=== PATIENT | male | born 1985 | race Caucasian/White ===

== ENCOUNTER 2024-03-12 23:48 | Observation (INO) | payer OTHER ==
[2024-03-13] MEDS: SODIUM CHLORIDE 0.9% 1,000 ML IV ONE (01:35)
[2024-03-13] MEDS: KETOROLAC 15 MG/ML 1 ML VIAL IVP STA (01:37)
--- NOTE | 2024-03-13 01:52 | XR ---
EXAM: XR Left Tibia and Fibula, 2 Views CLINICAL HISTORY: ITS.REASON XR Reason: infection TECHNIQUE: Frontal and lateral views of the left tibia and fibula. COMPARISON: No relevant prior studies available. FINDINGS: Bones/joints: No acute fracture. No dislocation. Soft tissues: Pretibial soft tissue swelling with soft tissue ulceration at the level of the upper tibial shaft. No radiopaque foreign body. IMPRESSION: Pretibial soft tissue swelling with soft tissue ulceration at the level of the upper tibial shaft.
[2024-03-13] MEDS ORDERED: VANCOMYCIN IV PER PHARMACY 1 EACH MISC MISCELLANE PRN ×2 (01:57→06:28)
[2024-03-13] MEDS: AMPICILLIN-SULBACTAM 3 GM in SODIUM CHLORIDE 0.9% 100 ML IVPB STA (02:06)
[2024-03-13 02:17] LABS: Basophils % (A) 0 %; Eosinophils # (A) 0.5 k/uL (0-0.7); Eosinophils % (A) 5 %; HCT 38.8 % (39.0-53.0); HGB 12.6 gm/dL (13.0-17.5); Lymphocytes # (A) 1.9 k/uL (1.0-4.8); Lymphocytes % (A) 20 %; MCH 28.4 pg (25.0-35.0); MCHC 32.5 g/dL (31.0-37.0); MCV 87.3 fL (80.0-100.0); Mean Platelet Volume 6.7; Monocytes # (A) 0.8 k/uL (0-1.0); Monocytes % (A) 8 %; Neutrophils # (A) 6.5 k/uL (1.3-7.7); Neutrophils % (A) 66 %; Platelet Count 327 k/uL (150-450); RBC 4.45 m/uL (4.30-5.90); RDW 13.6 % (11.5-15.5); WBC 9.8 k/uL (3.8-10.6)
[2024-03-13 02:23] LABS: ALT 50 U/L (4-49); AST 53 U/L (17-59); African American GFR (CKD) >90 (>60 ml/min/1.73 sqM); Albumin 3.9 g/dL (3.5-5.0); Alkaline Phosphatase 57 U/L (38-126); Anion Gap 3 mmol/L; Blood Urea Nitrogen 15 mg/dL (9-20); Calcium 9.1 mg/dL (8.4-10.2); Carbon Dioxide 33 mmol/L (22-30); Chloride 104 mmol/L (98-107); Glucose 78 mg/dL (74-99); Non-African American GFR(CKD) >90 (>60 ml/min/1.73 sqM); Potassium 4.1 mmol/L (3.5-5.1); Sodium 140 mmol/L (137-145); Total Bilirubin 0.3 mg/dL (0.2-1.3); Total Protein 7.4 g/dL (6.3-8.2)
[2024-03-13] MEDS: VANCOMYCIN 1,000 MG in SODIUM CHLORIDE 0.9% 250 ML IVPB ONE (02:44)
--- NOTE | 2024-03-13 03:15 | ED ---
Recheck HPI - General Chief Complaint: Recheck/Abnormal Lab/Rx Stated Complaint: pain in left leg, possible infection Time Seen by Provider: 03/13/24 00:11 Source: patient Mode of arrival: wheelchair - History of Present Illness Initial Comments: 38-year-old male with history of hepatitis C and IVDA presenting with chief complaint of pain and possible infection to the left lower leg. Patient states about 2 weeks ago there was an abscess forming to the area he was able to pop it himself about a week ago and since then it has been progressively worsening. He now has 2 open wounds to the area and a large area of redness swelling and tenderness. No fevers. Patient does have history of MRSA. - Related Data Home Medications Medication Instructions Recorded Confirmed No Known Home Medications 03/13/24 03/13/24 Allergies Allergy/AdvReac Type Severity Reaction Status Date / Time No Known Allergies Allergy Verified 03/13/24 07:55 Review of Systems ROS Statement: Those systems with pertinent positive or pertinent negative responses have been documented in the HPI. ROS Other: All systems not noted in ROS Statement are negative. Past Medical History Additional Past Medical History / Comment(s): Hepatitis C History of Any Multi-Drug Resistant Organisms: MRSA Past Surgical History: Tonsillectomy Past Psychological History: Anxiety, Depression Smoking Status: Current every day smoker Past Drug Use History: Marijuana General Exam Limitations: no limitations General appearance: alert, in no apparent distress Head exam: Present: atraumatic, normocephalic Eye exam: Present: normal appearance, EOMI Neck exam: Present: normal inspection. Absent: meningismus Respiratory exam: Absent: respiratory distress Cardiovascular Exam: Present: regular rate Left Lower Leg exam: Present: tenderness, swelling, erythema Neurological exam: Present: alert, oriented X3 Psychiatric exam: Present: normal affect, normal mood Skin exam: Present: erythema (Left lower leg accompanied by 2 ulcerations) Course Vital Signs 03/12/24 03/13/24 23:56 04:26 Temperature 98.2 F Pulse Rate 91 53 L Respiratory 18 16 Rate Blood Pressure 116/71 104/59 O2 Sat by Pulse 98 96 Oximetry Medical Decision Making - Medical Decision Making Was pt. sent in by a medical professional or institution (, PA, OFF PREMISE SERVICE REPRESENTATIVE, urgent care, hospital, or custodial...) When possible be specific @ -No Did you speak to anyone other than the patient for history (EMS, parent, family, police, friend...)? What history was obtained from this source @ -No Did you review nursing and triage notes (agree or disagree)? Why? @ -I reviewed and agree with nursing and triage notes Were old charts reviewed (outside hosp., previous admission, EMS record, old EKG, old radiological studies, urgent care reports/EKG's, custodial records)? Report findings @ -No old charts were reviewed Differential Diagnosis (chest pain, altered mental status, abdominal pain women, abdominal pain men, vaginal bleeding, weakness, fever, dyspnea, syncope, headache, dizziness, GI bleed, back pain, seizure, CVA, palpatations, mental health, musculoskeletal)? @ -Differential includes cellulitis, abscess, allergic reaction, this is not an all-inclusive list EKG interpreted by me (3pts min.). @ -As above X-rays interpreted by me (1pt min.). @ -None done CT interpreted by me (1pt min.). @ -None done U/S interpreted by me (1pt. min.). @ -None done What testing was considered but not performed or refused? (CT, X-rays, U/S, labs)? Why? @ -None What meds were considered but not given or refused? Why? @ -None Did you discuss the management of the patient with other professionals (professionals i.e. , PA, OFF PREMISE SERVICE REPRESENTATIVE, lab, RT, psych nurse, pediatric social worker, food selector, teacher, preventive medicine officer, briefcase sewer)? Give summary @ -My attending spoke with the sound provider on-call who accepted admission Was smoking cessation discussed for >3mins.? @ -No Was critical care preformed (if so, how long)? @ -No Were there social determinants of health that impacted care today? How? (Homelessness, low income, unemployed, alcoholism, drug addiction, transportation, low edu. Level, literacy, decrease access to med. care, nursing home, rehab)? @ -No Was there de-escalation of care discussed even if they declined (Discuss DNR or withdrawal of care, Hospice)? DNR status @ -No What co-morbidities impacted this encounter? (DM, HTN, Smoking, COPD, CAD, Cancer, CVA, ARF, Chemo, Hep., AIDS, mental health diagnosis, sleep apnea, morbid obesity)? @ -None Was patient admitted / discharged? Hospital course, mention meds given and route, prescriptions, significant lab abnormalities, going to OR and other pertinent info. @ -38-year-old male presenting with abscess to the left lower leg. Actively draining. Wound culture is taken. Labs require no action. Patient has history of IVDA and hepatitis C. Given the severity of his infection I believe he should be admitted for IV antibiotics. He was started on vancomycin. He is agreeable with this plan. I discussed this case with my attending Dr. Christie Undiagnosed new problem with uncertain prognosis? @ -No Drug Therapy requiring intensive monitoring for toxicity (Heparin, Nitro, Insulin, Cardizem)? @ -No Were any procedures done? @ -No Diagnosis/symptom? @ -Cellulitis, abscess Acute, or Chronic, or Acute on Chronic? @ -Acute Uncomplicated (without systemic symptoms) or Complicated (systemic symptoms)? @ -Complicated Side effects of treatment? @ -No Exacerbation, Progression, or Severe Exacerbation? @ -No Poses a threat to life or bodily function? How? (Chest pain, USA, VT, pneumonia, PE, COPD, DKA, ARF, appy, cholecystitis, CVA, Diverticulitis, Homicidal, Suicidal, threat to staff... and all critical care pts) @ -Yes - Lab Data Result diagrams: 03/13/24 00:39 03/13/24 00:39 Lab Results 03/13/24 03/13/24 03/13/24 Range/Units 00:39 00:39 00:39 WBC 9.8 (3.8-10.6) k/uL RBC 4.45 (4.30-5.90) m/uL Hgb 12.6 L (13.0-17.5) gm/dL Hct 38.8 L (39.0-53.0) % MCV 87.3 (80.0-100.0) fL MCH 28.4 (25.0-35.0) pg MCHC 32.5 (31.0-37.0) g/dL RDW 13.6 (11.5-15.5) % Plt Count 327 (150-450) k/uL MPV 6.7 Neutrophils % 66 % Lymphocytes % 20 % Monocytes % 8 % Eosinophils % 5 % Basophils % 0 % Neutrophils # 6.5 (1.3-7.7) k/uL Lymphocytes # 1.9 (1.0-4.8) k/uL Monocytes # 0.8 (0-1.0) k/uL Eosinophils # 0.5 (0-0.7) k/uL Basophils # 0.0 (0-0.2) k/uL Sodium 140 (137-145) mmol/L Potassium 4.1 (3.5-5.1) mmol/L Chloride 104 (98-107) mmol/L Carbon Dioxide 33 H (22-30) mmol/L Anion Gap 3 mmol/L BUN 15 (9-20) mg/dL Creatinine 0.81 (0.66-1.25) mg/dL Est GFR (CKD-EPI)AfAm >90 (>60 ml/min/1.73 sqM) Est GFR (CKD-EPI)NonAf >90 (>60 ml/min/1.73 sqM) Glucose 78 (74-99) mg/dL Plasma Lactic Acid Herb 0.9 (0.7-2.0) mmol/L Calcium 9.1 (8.4-10.2) mg/dL Total Bilirubin 0.3 (0.2-1.3) mg/dL AST 53 (17-59) U/L ALT 50 H (4-49) U/L Alkaline Phosphatase 57 (38-126) U/L Total Protein 7.4 (6.3-8.2) g/dL Albumin 3.9 (3.5-5.0) g/dL Disposition Clinical Impression: Cellulitis Disposition: ADMITTED IP TO THIS HOSP Condition: Poor Time of Disposition: 03:36
[2024-03-13] MEDS ORDERED: ACETAMINOPHEN TAB 325 MG TAB PO PRN (04:02)
[2024-03-13] MEDS ORDERED: KETOROLAC 15 MG/ML 1 ML VIAL IVP PRN (04:02)
[2024-03-13] MEDS ORDERED: NALOXONE 0.4 MG/ML 1 ML VIAL IV PRN (04:02)
[2024-03-13] MEDS ORDERED: IBUPROFEN 400 MG TAB PO PRN (04:02)
[2024-03-13] MEDS: SODIUM CHLORIDE 0.9% 1,000 ML IV SCH (04:26)
--- NOTE | 2024-03-13 05:53 | P.HPIM ---
History of Present Illness H&P Date: 03/13/24 Chief Complaint: left leg wound Patient is a 38-year-old male with a history of hepatitis C and MRSA skin abscesses He presents to the ER with 2 abscess lesions on his left kaur. Patient states that he noticed small pea-sized scab on his left kaur about 2 months ago which he has been trying to pick on with his fingernails. Then about 2 to 3 weeks ago area became inflamed and has been growing in size and becoming more raised, erythematous and tender. Patient noticed a second lesion forming just below the first one about a week ago. Both lesions have been draining pus with some blood since last 2 to 3 days with worsening pain and inflammation. Pain is worse especially with movements such as walking and he has has been draining and redressing them multiple times to alleviate pain and swelling. He suspects that he has bumped into something at work that caused the scab initially Patient reports multiple episodes of progressively worsening abscess lesion that started to drain in the past and he would be treated for MRSA infection with the IV Vanco. He was treated for a draining abscess lesion on his right forearm at the [facility] a week ago. Denies fever, chills, nausea or vomiting. 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 Additionally, he has been told in the past that he is susceptible to the MRSA infections. X-ray of the left tibia and fibula in the ER shows pretibial soft tissue swe lling with soft tissue ulceration at the level of the upper tibia shaft.. Vitals Tmax 98.2 F, heart rate 91 bpm, respiratory 18, blood pressure 160/71, O2 saturation 98% on room air Review of systems: Pertinent positives and negatives as discussed in HPI, a complete review of systems was performed and all other systems are negative. 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 1. larger, full skin thick ness deep, circular ulcer with red base covered with yellow-colored pus, borders are even, erythematous and has a dark scab on the edge. 2. smaller, shallow, circular ulcer with red base with even, erythematous border located slightly distal to the first lesion. The area of erythema and swelling extends from just below the knee almost the left ankle area. Head: atraumatic, normocephalic, symmetric Eyes: EOMI, no lid lag, anicteric sclera, pupils equal round reactive to light ENT: Nose and ears atraumatic Neck: No cervical lymphadenopathy, trachea midline, supple Mouth: no lip lesion, mucus membranes moist Cardiovascular: S1S2 reg, no murmur, positive dorsalis pedis pulse bilateral Lungs: Bilateral inspiratory rhonchi, no rales, no accessory muscle use Abdominal: soft, nontender to palpation, no guarding Ext: muscle strength 5 out of 5 in all 4 extremities grossly, no gross muscle atrophy, no contractures, Neuro: CN II-XI grossly intact, no gross focal neuro deficits Psych: Alert, oriented, appropriate affect Assessment/Plan: 38-year-old male with a history of hepatitis C and MRSA skin abscesses presents to the ER with 2 abscess lesions on his left kaur. #Cellulitis Continue with vancomycin dosing by pharmacy Continue with IV normal saline 75 cc/h add Zosyn IVPB 3.375 gm q 8hr Continue with morphine 4 mg IV every 4 hours as needed for pain Consult infectious disease Order blood culture Ordered wound culture #Bilateral inspiratory rhonchi, suspected COPD Order chest x-ray Order DuoNebs as needed #Normocytic anemia Hemoglobin 12.6, hematocrit 38.8, MCV 87.3 Continue monitor hemoglobin levels #Metabolic alkalosis secondary to COPD Bicarb 33 Continue to monitor CMP DVT prophylaxis: Lovenox 40 mg subcu daily The patient is admitted with an anticipated less than 2 midnight stay for evaluation of cellulitis CODE STATUS: Full code Discussed with: Patient Anticipated discharge place: Home Past Medical History Additional Past Medical History / Comment(s): Hepatitis C History of Any Multi-Drug Resistant Organisms: MRSA Past Surgical History: Tonsillectomy Past Psychological History: Anxiety, Depression Smoking Status: Current every day smoker Past Drug Use History: Marijuana Medications and Allergies Allergies Allergy/AdvReac Type Severity Reaction Status Date / Time No Known Allergies Allergy Verified 03/13/24 00:11 Physical Exam Vitals: Vital Signs Temp Pulse Resp BP Pulse Ox 07/24/24 23:56 98.2 F 91 18 116/71 98 Intake and Output 03/12/24 03/12/24 03/13/24 14:59 22:59 06:59 Other: Weight 58.967 kg Results CBC & Chem 7: 03/13/24 00:39 03/13/24 00:39 Labs: Abnormal Lab Results - Last 24 Hours (Table) 03/13/24 03/13/24 Range/Units 00:39 00:39 Hgb 12.6 L (13.0-17.5) gm/dL Hct 38.8 L (39.0-53.0) % Carbon Dioxide 33 H (22-30) mmol/L ALT 50 H (4-49) U/L Assessment and Plan Assessment: I have seen and evaluated the patient today. I Discussed the case with the resident and agree with the resident's findings I edited the assessment and plan as necessary as documented in the resident's note.
[2024-03-13] MEDS ORDERED: IPRATROPIUM-ALBUTEROL 3 ML NEB INHALATION PRN (06:30)
[2024-03-13] MEDS: PIPERACILLIN-TAZOBACTAM 3.375 GM in SODIUM CHLORIDE 0.9% 100 ML IVPB SCH (07:18)
[2024-03-13] MEDS: MORPHINE SULFATE 4 MG/ML SYRINGE IV PRN (07:40)
[2024-03-13] MEDS: ENOXAPARIN 40 MG/0.4 ML SYRINGE SQ SCH (07:56)
[2024-03-13] MEDS: PANTOPRAZOLE 40 MG TABLET PO SCH (08:21)
[2024-03-13] MEDS: VANCOMYCIN 1,000 MG in SODIUM CHLORIDE 0.9% 250 ML IVPB SCH (11:06)
--- NOTE | 2024-03-13 11:35 | XR ---
EXAMINATION TYPE: XR chest 1V portable DATE OF EXAM: 03/13/2024 COMPARISON: NONE HISTORY: Chest pain TECHNIQUE: Single frontal view of the chest is obtained. FINDINGS: There is no focal air space opacity, pleural effusion, or pneumothorax seen. The cardiac silhouette size is within normal limits. The osseous structures are intact. There appears to be remote distal right clavicular fracture. IMPRESSION: 1. No acute process.
[2024-03-13 12:32] VITALS: BP 103/62; PULSE 77; RESP 16; TEMP 99.3
--- NOTE | 2024-03-13 13:41 | P.DS ---
Providers Date of admission: 03/13/24 04:05 Expected date of discharge: 03/13/24 Attending physician: Gabe Best MD Consults: 03/13/24 04:02 Consult Physician Urgent Consulting Provider: Khloe Hdz Consult Reason/Comments: Cellulitis, history of IVDA Do you want consulting provider notified?: Yes, Notify in am Primary care physician: Stated None Hospital Course: 38-year-old male with a history of hepatitis C and MRSA skin abscesses. He presents to the ER with 2 abscess lesions on his left kaur. X-ray of the left tibia and fibula in the ER shows pretibial soft tissue swelling with soft tissue ulceration at the level of the upper tibia shaft. Started on Vancomycin and Zosyn for the treatment of cellulitis. ID consulted. Patient left AGAINST MEDICAL ADVICE on 03/13. No physical exam was performed by me. Discharge Diagnosis: Left lower extremity cellulitis COPD exacerbation Normocytic anemia Metabolic alkalosis Patient Condition at Discharge: Poor Plan - Discharge Summary Discharge Rx Participant: Yes New Discharge Prescriptions: No Action No Known Home Medications Discharge Medication List No Known Home Medications 03/13/24 [History] Follow up Appointment(s)/Referral(s): None,Stated [Primary Care Provider] - 1-2 days Discharge/Stand Alone Forms: AA Meetings [facility] & - [facility], AA Meetings [facility] Shel[facility], Who Do I Call?, Community Resources, Outpatient Counseling, Inp Substance Abuse Facilities, Area PCPs
[2024-03-14] MEDS ORDERED: VANCOMYCIN TROUGH DUE 1 EACH MISC MISCELLANE ONE (09:00)
== END 2024-03-13 13:35 | disposition left against medical advice (07) ==
LOC: EC 23:48 → 5NMEDONC 03-13 04:05
PROVIDERS: ADMIT Internal Medicine; ATTEND Internal Medicine
DX: L03.116 Cellulitis of left lower limb (principal); J44.1 Chronic obstructive pulmonary disease with (acute) exacerbation; L02.416 Cutaneous abscess of left lower limb; B19.20 Unspecified viral hepatitis C without hepatic coma; Z53.29 Procedure and treatment not carried out because of patient's decision for other reasons; F17.200 Nicotine dependence, unspecified, uncomplicated; D64.9 Anemia, unspecified; E87.3 Alkalosis; F14.90 Cocaine use, unspecified, uncomplicated; F12.90 Cannabis use, unspecified, uncomplicated; F17.210 Nicotine dependence, cigarettes, uncomplicated; Z86.14 Personal history of Methicillin resistant Staphylococcus aureus infection; Z87.2 Personal history of diseases of the skin and subcutaneous tissue; Z87.898 Personal history of other specified conditions
CPT/HCPCS: 96366 ×2; 96367 ×2; 96375 ×2; 96361; 96365; 99284; 36415; 80053; 83605; 85025; 87040; 87070; 87205; 87077; 87186; 73590; 71045; G0378; J2543; J3370; J2270; J0295; J1885

== ENCOUNTER 2024-03-23 17:48 | Emergency (ER) | payer OTHER ==
--- NOTE | 2024-03-23 18:25 | ED ---
Skin/Abscess/FB HPI - General Source: patient, RN notes reviewed Mode of arrival: ambulatory Limitations: no limitations <Lima Beck - Last Filed: 03/23/24 18:21> - General Source: patient, RN notes reviewed, old records reviewed Mode of arrival: ambulatory Limitations: no limitations - History of Present Illness MD complaint: abscess/boil, other (Leg cellulitis with MRSA infection) -: days(s) Tetanus Up to Date: yes Location: LLE Severity: moderate Severity scale (1-10): 4 Quality: stabbing, aching Consistency: constant Improves with: none, immobilization Worsens with: none Context: none, recent illness Associated symptoms: denies other symptoms <Kristian Christie - Last Filed: 04/16/24 02:59> - General Chief complaint: Skin/Abscess/Foreign Body Stated complaint: L leg issue Time Seen by Provider: 03/23/24 18:21 - History of Present Illness Initial comments: Quick note: 38 year old male presenting to the ER with a leg infection. Patient was seen here last week for similar complaint and left AMA. Patient states he received a call stating the wound culture was positive for MRSA which brought him back to the ER for further evaluation. He states he believes the wound has gotten worse. No recent antibiotic use. No fevers or chills. (Lima Beck) This is a 38 male presenting with left leg infection significant left leg infection which is positive for MRSA and patient will be admitted for further antibiotic need (Kristian Christie) - Related Data Home Medications Medication Instructions Recorded Confirmed No Known Home Medications 03/13/24 03/24/24 Allergies Allergy/AdvReac Type Severity Reaction Status Date / Time morphine Allergy Itching at Verified 03/24/24 08:19 injection site Review of Systems ROS Other: All systems not noted in ROS Statement are negative. <Lima Beck - Last Filed: 03/23/24 18:21> ROS Other: All systems not noted in ROS Statement are negative. <Kristian Christie - Last Filed: 04/16/24 02:59> ROS Statement: Those systems with pertinent positive or pertinent negative responses have been documented in the HPI. Past Medical History Additional Past Medical History / Comment(s): Hepatitis C History of Any Multi-Drug Resistant Organisms: MRSA Date of last positivie culture/infection: 2018 MDRO Source:: blood Past Surgical History: Tonsillectomy Past Anesthesia/Blood Transfusion Reactions: No Reported Reaction Past Psychological History: Anxiety, Depression Smoking Status: Current every day smoker Past Drug Use History: Marijuana <Lima Beck - Last Filed: 03/23/24 18:21> General Exam Limitations: no limitations <Lima Beck - Last Filed: 03/23/24 18:21> General appearance: alert, in no apparent distress, anxious, in distress Head exam: Present: atraumatic, normocephalic, normal inspection Eye exam: Present: normal appearance, PERRL, EOMI. Absent: scleral icterus, conjunctival injection, periorbital swelling ENT exam: Present: normal exam, mucous membranes moist Neck exam: Present: normal inspection. Absent: tenderness, meningismus, lymphadenopathy Respiratory exam: Present: normal lung sounds bilaterally. Absent: respiratory distress, wheezes, rales, rhonchi, stridor Cardiovascular Exam: Present: normal rhythm, normal heart sounds. Absent: sy stolic murmur, diastolic murmur, rubs, gallop, clicks GI/Abdominal exam: Present: soft, normal bowel sounds. Absent: distended, tenderness, guarding, rebound, rigid Extremities exam: Present: normal inspection, full ROM, normal capillary refill. Absent: tenderness, pedal edema, joint swelling, calf tenderness Back exam: Present: normal inspection Neurological exam: Present: alert, oriented X3, CN II-XII intact Psychiatric exam: Present: normal affect, normal mood Skin exam: Present: warm, dry, intact, normal color. Absent: rash <Kristian Christie - Last Filed: 04/16/24 02:59> - General Exam Comments Initial Comments: Visual Physical Exam Vital signs reviewed General: Well-appearing, nontoxic, no acute distress. Head: Normocephalic, atraumatic Eyes: PERRLA, EOMI ENT: Airway patent Chest: Nonlabored breathing Skin: No visual rash, normal skin tone Neuro: Alert and oriented 3 Musculoskeletal: No gross abnormalities (Lima Beck) Course <Kristian Christie - Last Filed: 04/16/24 02:59> Vital Signs 03/23/24 03/23/24 18:00 21:03 Temperature 97.7 F Pulse Rate 55 L 75 Respiratory 18 18 Rate Blood Pressure 88/56 118/78 O2 Sat by Pulse 97 98 Oximetry - Reevaluation(s) Reevaluation #1: 03/23/24 20:25 medical record is reviewed (Kristian Christie) Reevaluation #2: 03/23/24 20:32 Symptoms unchanged (Kristian Christie) Reevaluation #3: 03/23/24 20:32 Informed of results and questions answered (Kristian Christie) Reevaluation #4: Was pt. sent in by a medical professional or institution (, SHANIQUA, SSRS DEVELOPER, urgent care, hospital, or detention...) When possible be specific @ -no Did you speak to anyone other than the patient for history (EMS, parent, family, police, friend...)? What history was obtained from this source @ -no Did you review nursing and triage notes (agree or disagree)? Why? @ -agree Are old charts reviewed (outside hosp., previous admission, EMS record, old EKG, old radiological studies, urgent care reports/EKG's, detention records)? Report findings @ -yes Differential Diagnosis (chest pain, altered mental status, abdominal pain women, abdominal pain men, vaginal bleeding, weakness, fever, dyspnea, syncope, headache, dizziness, GI bleed, back pain, seizure, CVA, palpatations, mental health, musculoskeletal)? @ -prior EKG interpreted by me (3pts min.). @ -no X-rays interpreted by me (1pt min.). @ -no CT interpreted by me (1pt min.). @ -no U/S interpreted by me (1pt. min.). @ -no What testing was considered but not performed or refused? (CT, X-rays, U/S, labs)? Why? @ -none What meds were considered but not given or refused? Why? @ -none Did you discuss the management of the patient with other professionals (professionals i.e. SHANIQUA Thornton, SSRS DEVELOPER, lab, RT, psych nurse, geriatric social work professor, internet developer, teacher, credit risk officer, case management coordinator)? Give summary @ -no Was smoking cessation discussed for >3mins.? @ -no Was critical care preformed (if so, how long)? @ -no Were there social determinants of health that impacted care today? How? (Homelessness, low income, unemployed, alcoholism, drug addiction, transportation, low edu. Level, literacy, decrease access to med. care, penitentiary, rehab)? @ -none Was there de-escalation of care discussed even if they declined (Discuss DNR or withdrawal of care, Hospice)? DNR status @ -no What co-morbidities impacted this encounter? (DM, HTN, Smoking, COPD, CAD, Cancer, CVA, ARF, Chemo, Hep., AIDS, mental health diagnosis, sleep apnea, morbid obesity)? @ -none Was patient admitted / discharged? Hospital course, mention meds given and route, prescriptions, significant lab abnormalities, going to OR and other pertinent info. @ - 38 male will be admitted for persistent MRSA infection of the left lower e xtremity admit for IV antibiotic Admitted Undiagnosed new problem with uncertain prognosis? @ -no Drug Therapy requiring intensive monitoring for toxicity (Heparin, Nitro, Insulin, Cardizem)? @ -no Were any procedures done? @ -no Diagnosis/symptom? @ -MRSA Acute, or Chronic, or Acute on Chronic? @ -Acute Uncomplicated (without systemic symptoms) or Complicated (systemic symptoms)? @ -Complicated Side effects of treatment? @ -no Exacerbation, Progression, or Severe Exacerbation? @ -exacerbation Poses a threat to life or bodily function? How? (Chest pain, [place], [place], pneumonia, PE, COPD, DKA, ARF, appy, cholecystitis, CVA, Diverticulitis, Homicidal, Suicidal, threat to staff... and all critical care pts) @ -yes severe MRSA infection (Kristian Christie) - Consultations Consultation #1: Spoke with [facility] who agreed to admit this patient (Kristian Christie) Medical Decision Making <Lima Beck - Last Filed: 03/23/24 18:21> - Lab Data Result diagrams: 03/23/24 21:17 03/23/24 21:17 <Kristian Christie - Last Filed: 04/16/24 02:59> - Medical Decision Making I performed the quick note portion of this chart. Electronically signed by Lima Beck PA-C (Lima Beck) 38 male will be admitted for persistent MRSA infection of the left lower extremity admit for IV antibiotics (Kristian Christie) - Lab Data Lab Results 03/23/24 03/23/24 03/23/24 Range/Units 19:07 19:07 19:07 WBC 6.3 (3.8-10.6) k/uL RBC 4.76 (4.30-5.90) m/uL Hgb 13.5 (13.0-17.5) gm/dL Hct 41.0 (39.0-53.0) % MCV 86.2 (80.0-100.0) fL MCH 28.4 (25.0-35.0) pg MCHC 32.9 (31.0-37.0) g/dL RDW 13.9 (11.5-15.5) % Plt Count 403 (150-450) k/uL MPV 7.4 Neutrophils % 43 % Lymphocytes % 40 % Monocytes % 7 % Eosinophils % 5 % Basophils % 1 % Neutrophils # 2.7 (1.3-7.7) k/uL Lymphocytes # 2.5 (1.0-4.8) k/uL Monocytes # 0.4 (0-1.0) k/uL Eosinophils # 0.3 (0-0.7) k/uL Basophils # 0.1 (0-0.2) k/uL Hypochromasia Slight Sodium 137 (137-145) mmol/L Potassium 4.8 (3.5-5.1) mmol/L Chloride 107 (98-107) mmol/L Carbon Dioxide 24 (22-30) mmol/L Anion Gap 6 mmol/L BUN 16 (9-20) mg/dL Creatinine 0.63 L (0.66-1.25) mg/dL Est GFR (CKD-EPI)AfAm >90 (>60 ml/min/1.73 sqM) Est GFR (CKD-EPI)NonAf >90 (>60 ml/min/1.73 sqM) Glucose 97 (74-99) mg/dL Plasma Lactic Acid Herb 1.6 (0.7-2.0) mmol/L Calcium 9.4 (8.4-10.2) mg/dL Total Bilirubin 0.7 (0.2-1.3) mg/dL AST 43 (17-59) U/L ALT 37 (4-49) U/L Alkaline Phosphatase 41 (38-126) U/L Total Protein 8.0 (6.3-8.2) g/dL Albumin 4.1 (3.5-5.0) g/dL Disposition <Lima Beck - Last Filed: 03/23/24 18:21> Is patient prescribed a controlled substance at d/c from ED?: No Time of Disposition: 20:35 <Kristian Christie - Last Filed: 04/16/24 02:59> Clinical Impression: Abscess of left leg, Leg wound, left Disposition: ADMITTED IP TO THIS HOSP Condition: Fair
[2024-03-23 19:21] LABS: Basophils # (A) 0.1 k/uL (0-0.2); Basophils % (A) 1 %; Eosinophils # (A) 0.3 k/uL (0-0.7); Eosinophils % (A) 5 %; HGB 13.5 gm/dL (13.0-17.5); Hypochromasia Slight; Lymphocytes # (A) 2.5 k/uL (1.0-4.8); Lymphocytes % (A) 40 %; MCH 28.4 pg (25.0-35.0); MCHC 32.9 g/dL (31.0-37.0); MCV 86.2 fL (80.0-100.0); Mean Platelet Volume 7.4; Monocytes # (A) 0.4 k/uL (0-1.0); Monocytes % (A) 7 %; Neutrophils # (A) 2.7 k/uL (1.3-7.7); Neutrophils % (A) 43 %; Platelet Count 403 k/uL (150-450); RBC 4.76 m/uL (4.30-5.90); RDW 13.9 % (11.5-15.5); WBC 6.3 k/uL (3.8-10.6)
[2024-03-23 19:31] LABS: ALT 37 U/L (4-49); African American GFR (CKD) >90 (>60 ml/min/1.73 sqM); Anion Gap 6 mmol/L; Blood Urea Nitrogen 16 mg/dL (9-20); Calcium 9.4 mg/dL (8.4-10.2); Carbon Dioxide 24 mmol/L (22-30); Chloride 107 mmol/L (98-107); Glucose 97 mg/dL (74-99); Non-African American GFR(CKD) >90 (>60 ml/min/1.73 sqM); Sodium 137 mmol/L (137-145); Total Bilirubin 0.7 mg/dL (0.2-1.3)
[2024-03-23 19:44] LABS: AST 43 U/L (17-59); Albumin 4.1 g/dL (3.5-5.0); Alkaline Phosphatase 41 U/L (38-126); Potassium 4.8 mmol/L (3.5-5.1)
[2024-03-23] MEDS ORDERED: VANCOMYCIN IV PER PHARMACY 1 EACH MISC MISCELLANE PRN (20:34)
[2024-03-23] MEDS ORDERED: NALOXONE 0.4 MG/ML 1 ML VIAL IV PRN (20:34)
[2024-03-23] MEDS ORDERED: ONDANSETRON 4 MG/2 ML VIAL IVP PRN (20:34)
[2024-03-23] MEDS: SODIUM CHLORIDE 0.9% 1,000 ML IV STA (21:18)
[2024-03-23] MEDS: ONDANSETRON 4 MG/2 ML VIAL IVP STA (21:19)
[2024-03-23] MEDS: VANCOMYCIN 1,000 MG in SODIUM CHLORIDE 0.9% 250 ML IVPB SCH (21:24)
[2024-03-23 21:41] LABS: Basophils # (A) 0.1 k/uL (0-0.2); Basophils % (A) 1 %; Eosinophils # (A) 0.5 k/uL (0-0.7); Eosinophils % (A) 5 %; HCT 40.4 % (39.0-53.0); HGB 12.8 gm/dL (13.0-17.5); Hypochromasia Slight; Lymphocytes # (A) 3.3 k/uL (1.0-4.8); Lymphocytes % (A) 34 %; MCH 27.5 pg (25.0-35.0); MCHC 31.7 g/dL (31.0-37.0); MCV 86.7 fL (80.0-100.0); Monocytes # (A) 0.6 k/uL (0-1.0); Monocytes % (A) 7 %; Neutrophils # (A) 4.9 k/uL (1.3-7.7); Neutrophils % (A) 51 %; Platelet Count 393 k/uL (150-450); RBC 4.66 m/uL (4.30-5.90); WBC 9.6 k/uL (3.8-10.6)
[2024-03-23 21:47] LABS: Partial Thromboplastin Time 29.3 sec (22.0-30.0); Prothrombin Time 10.6 sec (10.0-12.5)
[2024-03-23 22:19] LABS: ALT 36 U/L (4-49); AST 54 U/L (17-59); African American GFR (CKD) >90 (>60 ml/min/1.73 sqM); Albumin 4.1 g/dL (3.5-5.0); Alkaline Phosphatase 61 U/L (38-126); Anion Gap 8 mmol/L; Blood Urea Nitrogen 15 mg/dL (9-20); Calcium 9.4 mg/dL (8.4-10.2); Carbon Dioxide 25 mmol/L (22-30); Chloride 104 mmol/L (98-107); Glucose 61 mg/dL (74-99); Magnesium 1.9 mg/dL (1.6-2.3); Non-African American GFR(CKD) >90 (>60 ml/min/1.73 sqM); Phosphorus 3.3 mg/dL (2.5-4.5); Potassium 3.7 mmol/L (3.5-5.1); Sodium 137 mmol/L (137-145); Total Bilirubin 0.5 mg/dL (0.2-1.3); Total Protein 7.7 g/dL (6.3-8.2)
[2024-03-23] MEDS ORDERED: HYDROcodone/APAP 5-325MG 1 EACH TAB PO PRN (22:48)
[2024-03-23] MEDS: HYDROmorphone 0.5 MG/0.5 ML SYRINGE IVP PRN (23:17)
[2024-03-24 04:05] VITALS: BP 99/62; PULSE 55; RESP 16; TEMP 98.2
[2024-03-24] MEDS ORDERED: PANTOPRAZOLE 40 MG/10 ML VIAL IV SCH (09:00)
[2024-03-24] MEDS ORDERED: HYDROmorphone 0.5 MG/0.5 ML SYRINGE ONE ×3 (10:38→19:32)
[2024-03-24] MEDS ORDERED: HYDROcodone/APAP 5-325MG 1 EACH TAB ONE (15:33)
== END 2024-03-24 20:45 | disposition other institution (70) ==
LOC: EC 17:48 → UNDOADMOB 20:34 → 5NMEDONC 20:34 → EC 23:59 → UNDODISOB 04-12 12:34
CPT/HCPCS: 36415; 80053; 83605; 83735; 84100; 84484; 85025; 85610; 85730; 96365; 96366; 96375; 99285